=== PATIENT | male | born 1975 | race Caucasian/White ===

== ENCOUNTER 2018-05-14 03:49 | Emergency (ER) | payer OTHER ==
[~2018-05-14] VITALS: Ht 175.3 cm; Wt 72.7 kg
[~2018-05-14 03:49] MED LIST: OLAN5TAB40 PO
[2018-05-14 04:27] VITALS: BP 118/86
[2018-05-14] MEDS ORDERED: GuaiFENesin/D-METHORPHAN [SUGAR-FREE] 200-20MG/10 ML SYRUP UDCUP PO ONE (05:00)
[2018-05-14] MEDS ORDERED: IBUPROFEN 600 MG TABLET PO ONE (05:00)
[2018-05-14] MEDS ORDERED: ACETAMINOPHEN 500 MG TABLET PO ONE (05:00)
== END 2018-05-14 05:16 | disposition home or self-care (01) ==
LOC: EMS 03:49
DX: J40 Bronchitis, not specified as acute or chronic (principal); J06.9 Acute upper respiratory infection, unspecified; H93.12 Tinnitus, left ear; F20.9 Schizophrenia, unspecified; Z79.899 Other long term (current) drug therapy
CPT/HCPCS: 71101; 93005

== ENCOUNTER 2019-07-14 02:19 | Emergency (ER) | payer OTHER ==
[~2019-07-14] VITALS: Ht 177.8 cm; Wt 72.7 kg
[2019-07-14 02:22] VITALS: BP 136/82
== END 2019-07-14 03:45 | disposition left against medical advice (07) ==
LOC: EMS 02:20
DX: Z00.00 Encounter for general adult medical examination without abnormal findings (principal); Z53.21 Procedure and treatment not carried out due to patient leaving prior to being seen by health care provider

== ENCOUNTER 2020-06-26 03:27 | Emergency (ER) | payer OTHER ==
[~2020-06-26] VITALS: Ht 177.8 cm; Wt 77.3 kg
[2020-06-26 03:29] VITALS: BP 138/69
== END 2020-06-26 04:45 | disposition home or self-care (01) ==
LOC: EMS 03:29
DX: H61.21 Impacted cerumen, right ear (principal); F20.9 Schizophrenia, unspecified
CPT/HCPCS: 99283; Z7502

== ENCOUNTER 2020-07-10 00:22 | Emergency (ER) | payer OTHER ==
[~2020-07-10] VITALS: Ht 177.8 cm; Wt 77.3 kg
[2020-07-10 01:27] LABS: ANION GAP 5 mmol/L (8-16); CALCIUM, TOTAL 9.2 mg/dL (8.8-10.5); CARBON DIOXIDE 32 mmol/L (22-29); CHLORIDE 104 mmol/L (98-107); CREATININE 1.05 mg/dL (0.60-1.30); GLOMERULAR FILTR. RATE CALC > 60 mL/min (>60); GLUCOSE,RANDOM 99 mg/dL (70-110); POTASSIUM 3.9 mmol/L (3.5-5.1); SODIUM SERUM 141 mmol/L (136-145); UREA NITROGEN, BLOOD 13 mg/dL (7-18)
[2020-07-10 01:33] LABS: ALANINE AMINOTRANSFERASE 49 U/L (12-78); ALBUMIN 3.8 g/dL (3.4-5.0); ALKALINE PHOSPHATASE 100 U/L (46-116); ASPARTATE AMINOTRANSFERASE 34 U/L (15-37); BILIRUBIN,TOTAL 0.6 mg/dL (0.1-1.0); TOTAL PROTEIN, SERUM 7.5 g/dL (6.4-8.2)
[2020-07-10] MEDS ORDERED: IBUPROFEN 800 MG TABLET PO ONE (02:00)
[2020-07-10] MEDS ORDERED: OLANZapine 5 MG TABLET PO ONE (02:00)
[2020-07-10 02:25] VITALS: BP 128/88
== END 2020-07-10 02:25 | disposition home or self-care (01) ==
LOC: EMS 00:23
DX: R44.0 Auditory hallucinations (principal); M54.9 Dorsalgia, unspecified
CPT/HCPCS: 36415; 80053; 99284; G0480

== ENCOUNTER 2020-10-03 00:55 | Emergency (ER) | payer OTHER ==
[~2020-10-03] VITALS: Ht 177.8 cm; Wt 75.0 kg
[~2020-10-03 00:55] MED LIST changes: -OLAN5TAB40 PO; +OLAN5TAB94 PO
[2020-10-03 00:58] VITALS: BP 144/79
== END 2020-10-03 02:12 | disposition home or self-care (01) ==
LOC: EMS 00:56
DX: R44.0 Auditory hallucinations (principal)
CPT/HCPCS: 99284; Z7502

== ENCOUNTER 2020-12-10 11:13 | Emergency (ER) | payer OTHER ==
[~2020-12-10] VITALS: Ht 177.8 cm; Wt 70.5 kg
[2020-12-10] MEDS ORDERED: BUPR75 PO (11:26)
[2020-12-10] MEDS ORDERED: LIDOCAINE 5% TRANSDERMAL PATCH TD ONE (12:45)
[2020-12-10] MEDS ORDERED: IBUPROFEN 600 MG TABLET PO ONE (12:45)
[2020-12-10 14:38] VITALS: BP 119/80
== END 2020-12-10 15:01 | disposition home or self-care (01) ==
LOC: EMS 11:13
DX: S22.31XA Fracture of one rib, right side, initial encounter for closed fracture (principal); F20.9 Schizophrenia, unspecified; V49.9XXA Car occupant (driver) (passenger) injured in unspecified traffic accident, initial encounter; Y93.89 Activity, other specified; Y92.410 Unspecified street and highway as the place of occurrence of the external cause; Y99.8 Other external cause status
CPT/HCPCS: 71046; 99283

== ENCOUNTER 2021-03-21 12:09 | Emergency (ER) | payer OTHER ==
[~2021-03-21] VITALS: Ht 177.8 cm; Wt 72.7 kg
[~2021-03-21 12:09] MED LIST changes: +BUPR75 PO
[2021-03-21] MEDS ORDERED: IBUPROFEN 600 MG TABLET PO ONE (13:00)
[2021-03-21 13:39] VITALS: BP 133/70
== END 2021-03-21 14:36 | disposition home or self-care (01) ==
LOC: EMS 12:10
DX: M79.641 Pain in right hand (principal); M79.642 Pain in left hand; F20.9 Schizophrenia, unspecified; Z79.899 Other long term (current) drug therapy
CPT/HCPCS: 29280; 99283

== ENCOUNTER 2022-08-16 04:23 | Emergency (ER) | payer OTHER ==
[~2022-08-16] VITALS: Ht 101.6 cm; Wt 70.0 kg
[~2022-08-16 04:23] MED LIST changes: +BUPR-344 PO; -BUPR75 PO
[2022-08-16 04:27] VITALS: BP 111/46
== END 2022-08-16 05:26 | disposition left against medical advice (07) ==
LOC: EMS 04:26
DX: F22 Delusional disorders (principal); Z53.21 Procedure and treatment not carried out due to patient leaving prior to being seen by health care provider
CPT/HCPCS: 99281; Z7502

== ENCOUNTER 2022-08-26 18:12 | Emergency (ER) | payer OTHER ==
[~2022-08-26] VITALS: Ht 175.3 cm; Wt 77.3 kg
[2022-08-26] MEDS ORDERED: ARIP2TAB27 PO (18:16)
[2022-08-26 18:30] VITALS: BP 128/78
[2022-08-26] MEDS ORDERED: OLANZapine 5 MG TABLET PO ONE (19:30)
== END 2022-08-26 20:10 | disposition home or self-care (01) ==
LOC: EMS 18:14
DX: F20.9 Schizophrenia, unspecified (principal); F17.210 Nicotine dependence, cigarettes, uncomplicated; F12.90 Cannabis use, unspecified, uncomplicated
CPT/HCPCS: 99284; Z7502; Z7610

== ENCOUNTER 2023-06-07 23:39 | Emergency (ER) | payer OTHER ==
[~2023-06-07] VITALS: Ht 177.8 cm; Wt 77.3 kg
[~2023-06-07 23:39] MED LIST changes: +ARIP2TAB27 PO
[2023-06-07 23:56] VITALS: BP 130/76; PULSE 94; RESP 14; TEMP 98.4
[2023-06-08 00:08] LABS: BASOPHILS % (AUTO) 0.2 % (0.0-2.0); EOSINOPHILS % (AUTO) 0.3 % (1.0-6.0); HEMATOCRIT 43.6 % (41-53); HEMOGLOBIN 14.8 g/dL (13.5-17.5); LYMPHOCYTES % (AUTO) 17.5 % (22.0-44.0); MEAN CORPUSCULAR HEMOGLOBIN 29.2 pg (26.0-34.0); MEAN CORPUSCULAR HGB CONC 34.1 G/dL (31.0-37.0); MEAN CORPUSCULAR VOLUME 86 fL (80-100); MONOCYTES # (AUTO) 2.1 K/uL (0.1-1.0); NEUTROPHILS # (AUTO) 7.3 K/uL (1.8-7.7); PLATELET COUNT (AUTO) 261 K/uL (150-450); RED BLOOD CELL COUNT(AUTO) 5.08 MIL/uL (4.50-5.90); RED CELL DISTRIBUTION WIDTH 13.9 % (11.5-14.5); WHITE BLOOD COUNT (AUTO) 11.4 K/uL (4.5-11.0)
[2023-06-08 00:17] LABS: ANION GAP 8 mmol/L (8-16); CALCIUM, TOTAL 9.9 mg/dL (8.8-10.5); CARBON DIOXIDE 35 mmol/L (22-29); CHLORIDE 100 mmol/L (98-107); CREATININE 1.14 mg/dL (0.60-1.30); GLOMERULAR FILTR. RATE CALC > 60 mL/min (>60); GLUCOSE,RANDOM 100 mg/dL (70-110); POTASSIUM 3.5 mmol/L (3.5-5.1); SODIUM SERUM 142 mmol/L (136-145); UREA NITROGEN, BLOOD 19 mg/dL (7-18)
[2023-06-08 00:22] LABS: ALANINE AMINOTRANSFERASE 40 U/L (12-78); ALKALINE PHOSPHATASE 116 U/L (46-116); ASPARTATE AMINOTRANSFERASE 25 U/L (15-37); BILIRUBIN,TOTAL 0.9 mg/dL (0.1-1.0)
== END 2023-06-08 02:51 | disposition left against medical advice (07) ==
LOC: EMS 23:40
DX: R51.9 Headache, unspecified (principal); R42 Dizziness and giddiness; Z53.21 Procedure and treatment not carried out due to patient leaving prior to being seen by health care provider
CPT/HCPCS: 80053; 85025; 93005; 99281

== ENCOUNTER 2024-11-05 08:49 | Emergency (ER) | payer OTHER ==
[~2024-11-05] VITALS: Ht 175.3 cm; Wt 79.5 kg
[2024-11-05] MEDS ORDERED: FLUP2.5T24 PO (08:55)
[2024-11-05 09:33] LABS: PLATELET COUNT (AUTO) 242 K/uL (150-450); RED BLOOD CELL COUNT(AUTO) 5.67 MIL/uL (4.50-5.90); RED CELL DISTRIBUTION WIDTH 13.6 % (11.5-14.5); WHITE BLOOD COUNT (AUTO) 9.7 K/uL (4.5-11.0)
[2024-11-05 09:36] LABS: CALCIUM, TOTAL 9.3 mg/dL (8.8-10.5); CREATININE 1.29 mg/dL (0.60-1.30); GLOMERULAR FILTR. RATE CALC > 60 mL/min (>60); GLUCOSE,RANDOM 166 mg/dL (70-110); SODIUM SERUM 145 mmol/L (136-145); UREA NITROGEN, BLOOD 14 mg/dL (7-18)
[2024-11-05 09:39] LABS: COVID AG,FIA SOURCE NPH
[2024-11-05 09:42] LABS: APPEARANCE,URINE CLEAR (CLEAR); GLUCOSE, URINE (UA) TRACE mg/dL (NEGATIVE); LEUKOCYTE ESTERASE ,URINE NEGATIVE (NEGATIVE); NITRATE,URINE NEGATIVE (NEGATIVE); OCCULT BLOOD,URINE NEGATIVE (NEGATIVE); PH,URINE DRUG SCREEN 6.0 (5.0-8.0); SPECIFIC GRAVITIY, URINE 1.037 (1.003-1.030)
[2024-11-05 09:49] LABS: ALCOHOL, URINE DRUG SCREEN NEGATIVE (NEGATIVE); AMPHET/METH SCREEN,URINE POSITIVE (NEGATIVE); BARBITURATE SCREEN, URINE NEGATIVE (NEGATIVE); CANNABINOID SCREEN,URINE POSITIVE (NEGATIVE); COCAINE SCREEN,URINE NEGATIVE (NEGATIVE); METHADONE SCREEN, URINE NEGATIVE (NEGATIVE)
[2024-11-05] MEDS: POTASSIUM CHLORIDE 20 MEQ ER TABLET PO ONE (10:00)
[2024-11-05 10:15] LABS: SARS-COV2 (COVID) ANTIGEN,FIA Negative (Negative)
[2024-11-05 10:26] LABS: SQUAMOUS EPITHELIAL CELL,UR Few /LPF (None Seen)
[2024-11-05 11:18] VITALS: BP 134/80; PULSE 102; RESP 16; TEMP 96.8; O2SAT 98
== END 2024-11-05 11:35 | disposition home or self-care (01) ==
LOC: EMS 08:49
DX: F20.9 Schizophrenia, unspecified (principal); F15.10 Other stimulant abuse, uncomplicated; F12.90 Cannabis use, unspecified, uncomplicated; F17.210 Nicotine dependence, cigarettes, uncomplicated; Z79.899 Other long term (current) drug therapy; Z20.822 Contact with and (suspected) exposure to COVID-19
CPT/HCPCS: 99283; 87426; 80048; 81001; 85025; 36415; 80307; G0480